=== PATIENT | female | born 1950 | race Two or more races ===

== ENCOUNTER 2024-04-18 08:23 | Outpatient (CLI) | payer OTHER ==
[~2024-04-18 08:23] MED LIST: COZAAR100 MG
[2024-04-18 09:22] LABS: INR 1.06; PARTIAL THROMBOPLASTIN TIME 31.9 SECONDS (22.0-34.0); PROTHROMBIN TIME 11.1 SECONDS (9.0-11.5)
[2024-04-18 09:52] LABS: COL EPI 100 SECONDS (82-175)
== END 2024-04-18 13:27 | disposition home or self-care (01) ==
LOC: LAB 08:23
PROVIDERS: ATTEND Orthopaedic Surgery
DX: D64.9 Anemia, unspecified (principal); E88.89 Other specified metabolic disorders; D68.8 Other specified coagulation defects; N39.0 Urinary tract infection, site not specified; Z22.322 Carrier or suspected carrier of Methicillin resistant Staphylococcus aureus; E11.9 Type 2 diabetes mellitus without complications; M17.0 Bilateral primary osteoarthritis of knee; Z76.89 Persons encountering health services in other specified circumstances

== ENCOUNTER 2024-04-27 10:45 | Inpatient (IN) | payer OTHER ==
[~2024-04-27] VITALS: Ht 154.9 cm; Wt 91.6 kg
[2024-04-27] MEDS ORDERED: HYDRODIURIL12.5 MG PO (16:24)
[2024-04-27] MEDS ORDERED: SYNTHROID50 MCG PO (16:25)
[2024-04-27] MEDS ORDERED: METFORMIN HCL500 M3 PO (16:25)
[2024-04-27] MEDS ORDERED: ATORVASTATIN CA10 MG PO (16:25)
[2024-04-27] MEDS ORDERED: ICAPS AREDS2 C1 EACH PO (16:26)
[2024-04-27] MEDS ORDERED: B12 ACTIVE1000 MCG PO (16:26)
[2024-04-27] MEDS ORDERED: ARTIFICIAL TEAR15 ML OP (16:26)
[2024-05-01] MEDS ORDERED: EPINEPHRINE HCL/PF 1 MG/ML AMPUL ONE (07:07)
[2024-05-01] MEDS ORDERED: KETOROLAC TROMETHAMINE 60 MG VIAL IM ONE (07:08)
[2024-05-01] MEDS ORDERED: POLYMYXIN B SULFATE 500,000 U VIAL ONE (07:09)
[2024-05-01] MEDS ORDERED: BUPIVACAINE HCL/MPF 0.5% 30ML VIAL ONE ×2 (07:09→10:40)
[2024-05-01] MEDS ORDERED: VANCOMYCIN HCL 1,000 MG VIAL ONE (07:09)
[2024-05-01] MEDS ORDERED: LIDOCAINE HCL 1%/EPINEPHRINE 20ML VIAL IJ ONE (07:09)
[2024-05-01] MEDS ORDERED: CEFOXITIN SODIUM 2,000 MG VIAL IV ONE (07:10)
[2024-05-01] MEDS ORDERED: TRANEXAMIC ACID 100MG/1ML (1000MG) AMPUL IV ONE ×2 (08:32→09:15)
[2024-05-01] MEDS ORDERED: MORPHINE SULFATE 4 MG/ML CARTRIDGE IV NR (09:15)
[2024-05-01] MEDS ORDERED: SODIUM CHLORIDE 0.45 % 1,000 ML IV SCH (11:00)
[2024-05-01] MEDS ORDERED: ONDANSETRON HCL 2 MG/ML VIAL IV PRN (11:00)
[2024-05-01] MEDS ORDERED: MEPERIDINE HCL/PF 50 MG/ML VIAL IM PRN (11:00)
[2024-05-01] MEDS ORDERED: TRAMADOL HCL 50 MG TABLET PO PRN (11:00)
[2024-05-01] MEDS ORDERED: PROMETHAZINE HCL 50 MG/ML AMPUL IM PRN (11:00)
[2024-05-01] MEDS ORDERED: ONDANSETRON 4 MG TAB.RAPDIS PO PRN (11:00)
[2024-05-01] MEDS ORDERED: PANTOPRAZOLE SODIUM 40 MG TABLET.DR PO SCH (12:00)
[2024-05-01] MEDS ORDERED: ACETAMINOPHEN 325 MG TABLET PO SCH (13:00)
[2024-05-01] MEDS ORDERED: KETOROLAC TROMETHAMINE 10 MG TABLET PO SCH (13:00)
[2024-05-01] MEDS ORDERED: CEFAZOLIN SODIUM 1,000 MG VIAL ONE (16:28)
[2024-05-01] MEDS ORDERED: CEFAZOLIN SODIUM 1,000 MG VIAL IV SCH (17:00)
[2024-05-01] MEDS ORDERED: CELECOXIB 200 MG CAPSULE PO SCH (17:00)
[2024-05-02 07:31] LABS: HEMATOCRIT 28.8 % (36.0-45.00); HEMOGLOBIN 9.9 g/dL (12.0-15.00); MEAN CELL VOLUME 83.8 fL (80.00-100.00); MEAN CORPUSCULAR HEMOGLOBIN 28.7 pg (27.00-32.0); MEAN CORPUSCULAR HGB CONC 34.2 g/dl (32.0-36.0); PLATELET COUNT 192 K/uL (150-450); RED BLOOD COUNT 3.44 M/uL (4.00-6.00)
[2024-05-02] MEDS ORDERED: LOSARTAN POTASSIUM 100 MG TABLET PO SCH (09:00)
[2024-05-02] MEDS ORDERED: RIVAROXABAN 10 MG TAB PO SCH (09:00)
[2024-05-02 13:14] LABS: ALBUMIN 2.9 gm/dL (3.4-5.0); BILIRUBIN TOTAL 0.35 mg/dL (0.3-1.2); CALCIUM 8.9 mg/dL (8.5-10.1); CREATININE SERUM 0.82 mg/dL (0.55-1.02); GFR 67.96; GLOBULINA 3.3 G/DL (2.4-3.5); POTASSIUM 3.78 mEq/L (3.5-5.1); TOTAL PROTEIN 6.2 gm/dL (6.4-8.2)
[2024-05-02] MEDS ORDERED: IRON FUM,PS/FOLIC/BCOMP,C NO.9 1 CAP CAPSULE PO SCH (17:24)
[2024-05-03 07:57] LABS: MEAN CELL VOLUME 84.5 fL (80.00-100.00); MEAN CORPUSCULAR HGB CONC 33.9 g/dl (32.0-36.0); PLATELET COUNT 179 K/uL (150-450); RED BLOOD COUNT 3.32 M/uL (4.00-6.00); RED CELL DISTRIBUTION WIDTH 14.1 % (11.5-14.5)
[2024-05-03 08:04] LABS: HEMOGLOBIN 9.5 g/dL (12.0-15.00); MEAN CORPUSCULAR HEMOGLOBIN 28.6 pg (27.00-32.0)
[2024-05-03] MEDS ORDERED: SENNA/DOCUSATE SODIUM 1 TAB TABLET PO SCH (09:00)
== END 2024-05-04 13:44 | disposition home or self-care (01) | DRG 470 ==
LOC: SURH 05-01 05:30 → O/R 05-01 05:30 → SURG 05-01 07:00 → SURH 05-01 13:30
PROVIDERS: ADMIT Orthopaedic Surgery; ATTEND Orthopaedic Surgery
PROC: 0SRC0J9 Replacement of Right Knee Joint with Synthetic Substitute, Cemented, Open Approach (ICD-10-PCS; principal; 2024-05-01 07:00)
DX: M17.11 Unilateral primary osteoarthritis, right knee (principal)

== ENCOUNTER 2025-06-25 10:53 | Outpatient (CLI) | payer OTHER ==
[~2025-06-25 10:53] MED LIST changes: +ARTIFICIAL TEAR15 ML OP; +ATORVASTATIN CA10 MG PO; +B12 ACTIVE1000 MCG PO; +HYDRODIURIL12.5 MG PO; +ICAPS AREDS2 C1 EACH PO; +METFORMIN HCL500 M3 PO; +SYNTHROID50 MCG PO
[2025-06-25 11:40] LABS: BASO % 0.7 % (0.1-1.2); EOS # 0.09 (0.04-0.54); EOS % 1.5 % (0.7-7.0); LYMPH # 1.06 (1.18-3.74); LYMPH % 17.3 % (19.3-53.1); MEAN PLATELET VOLUME 10.80 fl (9.4-12.4); MONO # 0.46 (0.24-0.82); MONO % 7.5 % (4.7-12.5); NEUT # 4.45 (1.56-6.13); NEUT % 72.5 % (34.0-71.1); RED CELL DISTRIBUTION WIDTH 14.1 % (11.6-14.4)
[2025-06-25 12:19] LABS: ALT/SGPT 20.0 U/L (12-78); AST/SGOT 10.0 U/L (15-37); BILIRUBIN TOTAL 0.39 mg/dL (0.3-1.2); BUN CREA RATIO 36.0 (7.0-25.0); CREATININE SERUM 0.66 mg/dL (0.55-1.02); FE 65.0 ug/dl (50-170); GFR 87.07; GLOBULINA 3.4 G/DL (2.4-3.5); GLUCOSE FASTING 107.0 mg/dL (65-100); LDH 144.0 U/L (84-246); OSMOLALITY SERUM 288.0 MOSM/KG (275-295); T4 FREE 1.05 NG/ML (0.76-1.46); TSH 1.58 uIU/mL (0.358-3.74)
[2025-06-25 15:56] LABS: FOLIC ACID > 20.00 ng/ml (4.78-20)
[2025-06-27 09:07] LABS: ANTI THYROID PEROXIDASE 10 IU/mL (0-34)
== END 2025-06-25 10:56 | disposition home or self-care (01) ==
LOC: LAB 10:53
PROVIDERS: ATTEND Internal Medicine Hematology & Oncology
DX: D50.8 Other iron deficiency anemias (principal); I10 Essential (primary) hypertension; R74.02 Elevation of levels of lactic acid dehydrogenase [LDH]; K76.89 Other specified diseases of liver; E55.9 Vitamin D deficiency, unspecified; E03.8 Other specified hypothyroidism; E06.3 Autoimmune thyroiditis; E78.2 Mixed hyperlipidemia